=== PATIENT | female | born 1965 | race Caucasian/White ===

== ENCOUNTER 2020-07-18 19:05 | Emergency (ER) | payer BC, SELFPAY ==
[2020-07-18 19:15] VITALS: BP 174/106; PULSE 77; RESP 14; TEMP 36.9; O2SAT 96; BMI 20.3
--- NOTE | 2020-07-18 20:59 | W.ED.WOUNDLC ---
HPI - Wound/Laceration General: Chief Complaint: Wound/Laceration Stated Complaint: laceration to left index finger Time Seen by Provider: 07/18/20 19:47 Source: patient Mode of arrival: ambulatory Limitations: no limitations History of Present Illness: HPI narrative: 55-year-old female patient presents to the emergency department with acute left index finger injury. She states was using a vegetable slicer which was new, states was washing the slicer and cut her index finger, states bleeding continues despite pressure dressing. Onset (ago): minute(s) (30) Place: home Patient tetanus UTD: No Context: accidental Associated symptoms: Reports no associated symptoms; Denies chills, fever(s), nausea or vomiting Treatments prior to arrival: bandage Review of Systems General: Reports: 10 or more systems reviewed and unremarkable except in HPI and below Const: Denies: fever(s), chills or diaphoresis Eyes: Denies: blurry vision or eye redness ENMT: Denies: throat pain, dental pain or disequilibrium Card: Denies: chest pain, palpitations or irregular heart rhythm Resp: Denies: dyspnea, productive cough, non-productive cough or wheezing GI: Denies: abdominal pain, nausea or vomiting : Denies: difficulty voiding or dysuria Musc: Denies: back pain Skin/Breast: Reports: skin tenderness and sores; Denies: rash or pruritus Neuro: Denies: headache(s), weakness in extremities or behavioral changes Psych: Denies: anxiety or depression Danie/Lymph: Denies: easy bruising PFS ED PFSH: Medical History (Updated 07/18/20 @ 21:01 by JOVANNY Melgar) Healthy adult Physical Exam Const: COMMON NORMALS: no acute distress, patient oriented x3, healthy appearing and alert GENERAL APPEARANCE: cooperative, comfortable and well hydrated HENMT: COMMON NORMALS: normocephalic, Normal external nose present and moist oral mucous membranes HEAD & SCALP: normocephalic NOSE: Normal external nose present Eye: COMMON NORMALS: Equal, round and reactive pupils present and EOMs intact bilaterally GENERAL EYE: appearance normal, both eyes and all related structures PUPIL: Yes Equal, round and reactive pupils present Neck/C-Spine: COMMON NORMALS: full ROM and no lymphadenopathy GENERAL: Yes normal visual inspection and Yes trachea midline CERVICAL SPINE: Yes cervical ROM normal Lymph: LYMPHATIC: no lymphadenopathy noted Chest: COMMONS NORMALS: normal inspection of the chest Resp: COMMON NORMALS: normal respiratory effort and clear to auscultation bilaterally AUSCULTATION: clear to auscultation bilaterally Cardio: COMMON NORMALS: regular rhythm, S1 normal heart sound present and S2 normal heart sound present RHYTHM: regular rhythm HEART SOUNDS: S1 normal heart sound present and S2 normal heart sound present GI: COMMON NORMALS: Soft to palpation and non-tender INSPECTION: Yes normal to inspection PALPATION: Yes Soft to palpation : COMMON NORMALS: Yes no CVA tenderness BLADDER/KIDNEY EXAM: Yes no CVA tenderness Back/Pelvis: COMMON NORMALS: no CVA tenderness and thoracic and lumbar spine normal to inspection Extremity: COMMON NORMALS: normal to inspection, full ROM, capillary refill normal, no clubbing, cyanosis or edema and no pedal edema GENERAL: Yes normal exam except as noted Neuro: COMMON NORMALS: patient oriented x3 and no focal motor deficits SENSORIUM/ORIENTATION: Yes alert Psych: COMMON NORMALS: mental status grossly normal, Normal thought process present and cooperative ACTIVITY/MOTOR BEHAVIOR: Yes appropriate eye contact THOUGHT PROCESS: Normal thought process present Skin: COMMON NORMALS: no rashes or lesions noted, turgor normal, no petechiae and no mottling GENERAL SKIN EXAM: no rashes or lesions noted, elasticity normal and turgor normal TRAUMA: laceration (1 cm skin avulsion left distal tip index finger, no nail involvement, ) actively bleeding, pulsatile bleeding, involves subcutaneous tissue, motor nerve function intact and sensation intact Procedures Laceration Laceration 1: Site: hand (left index finger) Size (cm): 1 Depth: involves muscle layer Pre-repair: wound explored, irrigated extensively, deep structures intact and extensive debridement Skin layer closed with: nylon Size (cm): 4-0 Number of sutures: 2 Technique: simple, interrupted Nerve Block Nerve Block 1: Time out performed: Yes Local Anesthetic: lidocaine 1% Amount of anesthesia used (mL): 10 Side: left Nerve Blocks: digital (left index) Procedure Successful: Yes Patient Tolerated Procedure: well Complications: none Course Vital Signs: Vital signs: Vital Signs Temperature 98.5 F 07/18/20 19:15 Pulse Rate 77 07/18/20 19:15 Respiratory Rate 14 07/18/20 19:15 Blood Pressure 174/106 07/18/20 19:15 Pulse Oximetry 96 07/18/20 19:15 MDM - Wound/Laceration MDM Narrative: Medical decision making narrative: 55-year-old female patient presents to the emergency department with active bleeding from the left index finger after she cut her finger with a industrial fabric cutter. No nail involvement appreciated. Large amount of bleeding was noted at time of initial assessment, Surgicel was applied to help with bleeding as skin avulsion injury was present. Digital block was performed while applying pressure to the avulsion site. Bleeding did slow, two 4-0 sutures were placed, bleeding stopped, wound was monitored for further bleeding. Pressure dressing applied, tetanus prophylaxis administered. Digital block effective, however, patient requesting pain medication in the event her finger starts to hurt during the night. Is requesting something for pain. Two hydrocodone tablets provided. Prophylactic antibiotics, Keflex provided. Discharge Plan Discharge Patient Disposition: Home Clinical Impression: Avulsion of skin of finger Qualifiers: Encounter type: initial encounter Qualified Code(s): S61.209A - Unspecified open wound of unspecified finger without damage to nail, initial encounter Laceration of finger, index Qualifiers: Encounter type: initial encounter Damage to nail status: without damage Foreign body presence: without foreign body Laterality: left Qualified Code(s): S61.211A - Laceration without foreign body of left index finger without damage to nail, initial encounter Condition: Stable Prescriptions: New Keflex 500 mg capsule 500 mg PO TID 7 Days Qty: 21 RF: 0 Discharge Orders: Discharge ED (Routine); Ordered 07/18/20 Ordered By: Mya Patterson Discharge Diet: Usual diet Discharge Activity: Limit activity as instructed Patient Instructions: Diphtheria/Acellular Pertussis/Tetanus Booster Vaccine (Tdap) (Injection), Suture Care (ED), Laceration (ED), Skin Avulsion (ED), Opioid Safety Activity Restrictions/Additional Instructions: Keep pressure to the site x 48 hours Keep sutures dry Return to the ED for any return of bleeding, increased pain or other concerning symptoms Sutures out in 7-10 days Avoid use of the left hand until suture are removed Coding Level of Care Code ED Heddle Machine Operator for Tasha Fwd Exam Comprehensive
[2020-07-18] MEDS: HYDROcodone-acetaminophen 5-325 mg Tablet 1 TAB PO (21:28)
[2020-07-18] MEDS: tetanus-diphtheria tox (adult) 0.5 mL SDV IM (21:31)
[2020-07-18] MEDS: lidocaine 1% INJ 20 mL INJECTION (21:33)
[2020-07-18 21:48] VITALS: BP 170/92; PULSE 71; RESP 14; O2SAT 97
== END 2020-07-18 21:50 | disposition home or self-care (01) ==
PROVIDERS: Emergency Provider Nurse Practitioner Family
DX: S61.211A Laceration without foreign body of left index finger without damage to nail, initial encounter (principal); W26.0XXA Contact with knife, initial encounter; Z23 Encounter for immunization
CPT/HCPCS: 12041; 90471; 90714; 99283